=== PATIENT | female | born 1955 | race African-American/Black ===

== ENCOUNTER 2017-10-21 01:49 | Emergency (ER) | payer MEDICARE, MEDICAID ==
[2017-10-21] MEDS ORDERED: EPINEPHrine HCL (1:1000) 30 MG/30 ML VIAL IV ONE (01:50)
[2017-10-21] MEDS ORDERED: ATROPINE SULFATE 1 MG/10 ML SYRINGE IV ONE (01:50)
[2017-10-21] MEDS ORDERED: EPINEPHrine HCL (1:10,000) 1 MG/10 ML SYRINGE IV ONE (01:50)
[2017-10-21] MEDS ORDERED: DEXTROSE 50% IN WATER 50 ML SYRINGE IV ONE (01:50)
--- NOTE | 2017-10-21 02:18 | PD ---
HPI . Cardiopulmonary arrest Chief Complaint: cardiopulmonary arrest Time Seen by Provider: 02:12 Travel History International Travel<30 days: No Contact w/Intl Traveler<30days: No Traveled to known affect area: No History of Present Illness HPI Approximate 62-year-old female presents from triage with the electronics technician Benjamin on stretcher. Performing compressions, patient had presented to triage via private vehicle, patient has stop breathing at home is put into private car and driven to the hospital. No CPR in progress. Unknown down time. Patient presented to room 56 with no spontaneous respirations no spontaneous pulse. History of cancer and chemotherapy. Limited history secondary to acute presentation. Patient unresponsive [facility] Past Medical History Narrative Medical Cancer and chemotherapy as noted Social History Alcohol Use: No Tobacco Use: No Substance Use: No Allergies-Medications Narrative Medication Unable to assess meds or allergies secondary to patient's condition Review of Systems ROS Limitations: Intubated, Unresponsive Physical Exam Exam Limitations: Clinical Condition Narrative GENERAL: Unresponsive, no spontaneous pulse no spontaneous respirations no corneal reflexes SKIN: Warm and dry. HEAD: Atraumatic. Normocephalic. EYES: Pupils fixed and nonreactive ENT: Extensive vomitus in oral nasopharynx NECK: Trachea midline. CARDIOVASCULAR: No spontaneous pulse. Agonal rhythm on manager cardiac cath RESPIRATORY: No spontaneous breath sounds GASTROINTESTINAL: Nondistended MUSCULOSKELETAL: No obvious lesions NEUROLOGICAL: No spontaneous movement PSYCHIATRIC: Unresponsive [facility] Medical Decision Making Medical Screen Exam Complete: Yes Emergency Medical Condition: Yes Medical Record Reviewed: Yes Differential Diagnosis Cardiopulmonary arrest Narrative Course I presentation patient intubated with 7.5 ET tube with number Mac 4 blade. Direct laryngoscopy with equal bilateral breath sounds, equal bilateral chest excursions, positive capnometry, negative breath sounds auscultated over epigastrium. Tube secured at 24 cm at lips. ACLS protocol performed. With 3 rounds of epinephrine and atropine IV push with no return of spontaneous respirations or pulse. Bedside echocardiogram utilized during in the entire code, patient had no return of cardiac activity. Outcome of patient's condition and expiration discussed with family in the family waiting room at triage. Diagnosis Primary Impression: Cardiopulmonary arrest Disposition: 20 Condition: UnSamuel nagy MD Oct 21, 2017 02:18
== END 2017-10-21 10:44 | disposition expired ==
LOC: EDBD 01:49 → NEPI 01:49
DX: I46.9 Cardiac arrest, cause unspecified (principal)
CPT/HCPCS: 31500; 92950; J0171; J0461